=== PATIENT | male | born 1985 | race Caucasian/White ===

== ENCOUNTER 2023-04-01 16:16 | Outpatient (REF) | payer OTHER, SELFPAY ==
[2023-04-01 21:59] LABS: Abs Immature Grans 0.02 10^3/uL (0.0-0.06); Absolute Basophil Count 0.02 10^3/uL (0.0-0.2); Absolute Eosinophil Count 0.13 10^3/uL (0.0-0.7); Absolute Lymphocyte Count 3.04 10^3/uL (1.2-3.4); Absolute Monocyte Count 0.73 10^3/uL (0.1-0.8); Absolute Neutrophil Count 4.42 10^3/uL (1.2-6.7); Basophils % 0.2; Eosinophils % 1.6; HGB 15.1 g/dL (13.5-17.5); Immature Grans % 0.2; Lymphocytes % 36.4; MCH 27.5 pg (27.0-33.0); MCHC 32.8 % (32.0-36.0); MCV 84 fL (80-95); MPV 10.1 fL (8.0-11.0); Monocytes % 8.7; Neutrophils % 52.9; Platelet Count 304 10^3/uL (130-400); RDW-SD 36.6 fL; WBC 8.36 10^3/uL (4.4-10.8)
[2023-04-01 22:20] LABS: ALT 33 U/L (16-63); AST 19 U/L (15-37); Albumin 4.7 g/dL (3.4-5.0); Alkaline Phosphatase 58 U/L (46-116); Anion Gap 7.5 mmol/L (3-11); BUN 12 mg/dL (7-18); Bilirubin, Total 0.4 mg/dL (0.2-1.0); CO2 29.5 mmol/L (21.0-32.0); Calcium 9.6 mg/dL (8.5-10.1); Chloride 103 mmol/L (98-107); Estimated GFR 100.66 (mL/min/1.73m2); Glucose 96 mg/dL (74-106); Potassium 4.8 mmol/L (3.5-5.1); Sodium 140 mmol/L (136-145); TSH (W/Ref FT4) 2.08 uIU/mL (0.36-3.74); Total Protein 7.9 g/dL (6.4-8.2)
[2023-04-01 22:34] LABS: Vitamin D 25 Total 27.4 ng/mL (30-100)
== END 2023-04-01 16:17 | disposition home or self-care (01) ==
LOC: NCHCN 16:16
PROVIDERS: PCP Family Medicine; Visit Provider Family Medicine
DX: R53.83 Other fatigue (principal); E55.9 Vitamin D deficiency, unspecified
CPT/HCPCS: 80053; 82306; 84443; 85025

== ENCOUNTER → 2023-06-07 17:39 | Outpatient (CLI) | payer OTHER, SELFPAY ==
--- NOTE | 2023-06-07 14:37 | DI.RAD_ITS ---
Exam(s) XR HIP LT COMPLETE AP PELVIS XR FEMUR LT EXAM: XR FEMUR LT CLINICAL HISTORY: PAIN IN LT LOWER LIMB, M79.605 PAIN LT LEG, HX LT FEMUR FRACTURE. TECHNIQUE: 2D digital imaging was performed. AP and lateral views. COMPARISON: None. FINDINGS: BONES: No acute fracture is present. Medullary calvin noted in femur. No abnormal surrounding lucencie s. 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 Two chronic appearing fragments are noted above the gr eater trochanter. No bony destructive lesion is seen. JOINTS: No dislocation present. The hip joint spaces are maintained. There is mild acetabular spurr ing. SI joints and pubic symphysis are unremarkable. SOFT TISSUE: Normal. IMPRESSION: Hardware in left femur. No acute abnormality. DATA REPOSITORY: RADIATION DOSE DELIVERED:
== END ==
PROVIDERS: PCP Family Medicine; Visit Provider Family Medicine
DX: M25.552 Pain in left hip; M79.662 Pain in left lower leg; Z87.81 Personal history of (healed) traumatic fracture
CPT/HCPCS: 73552; 73502